=== PATIENT | female | born 1955 | race Caucasian/White ===

== ENCOUNTER 2018-02-11 15:28 | Observation (INO) ==
[2018-02-11 16:04] LABS: Basophils # 0.1 K/mcL (0.0-0.2); Basophils % 0.6 %; Eosinophils # 0.1 K/mcL (0.0-0.6); Eosinophils % 1.4 %; Hematocrit 45.1 % (35.3-44.9); Hemoglobin 14.9 g/dL (11.5-15.4); Immature Granulocytes % 0.3 % (0-4); Lymphocytes # 3.3 K/mcL (0.6-4.6); Lymphocytes % 37.3 %; Mean Corpuscular Hemoglobin 29.6 pg (28.0-33.3); Mean Corpuscular Volume 89.7 fL (83.0-100.0); Mean Platelet Volume 9.4 fL (9.4-12.4); Monocytes # 0.6 K/mcL (0.0-1.3); Monocytes % 6.8 %; Neutrophils # 4.7 K/mcL (1.6-8.9); Platelet Count 236 K/mcL (140-400); Red Blood Count 5.03 M/mcL (3.82-4.97); Red Cell Distribution Width 12.9 % (11.5-14.5); Segmented Neutrophils % 53.6 %
--- NOTE | 2018-02-11 16:04 | Emergency Department Note ---
Disposition Clinical Impression: Palpitations Disposition: Still a Patient Arrhythmia/Palpitations HPI - General Chief Complaint: ED Arrhythmia/Palpitations Stated Complaint: chest pain Time Seen by Provider: 02/11/18 15:39 Source: patient, family Mode of arrival: private vehicle Limitations: no limitations Vital Signs Reviewed: Yes - History of Present Illness HPI Narrative: Ms Galindo is a 62 y/o female that presents with a daily occurrence of palpations , SOB, and fatigue that resolves after an hour of resting. However, todays episode started when she was at the store and has been worse that ever and hasn' t resolved with the exception of the palpitations. She admits to decreasing her from TID to BID about a month ago which she correlates to her increase of symptoms. - Related Data Home Medications Medication Instructions Recorded Confirmed Atenolol [Tenormin] 25 mg PO DAILY 02/11/15 12/11/17 Diazepam [Valium] 2 mg PO DAILY PRN 02/11/15 12/11/17 Omeprazole [PriLOSEC] 20 mg PO HS 02/11/15 12/11/17 Phenobarb/Hyoscy/Atropine/Scop 16.2 mg PO TID 12/22/15 12/11/17 [ Tablet] Previous Rx's Medication Instructions Recorded Cholecalciferol (Vitamin D3) 50,000 unit PO QWEEK #12 capsule 12/16/17 [Vitamin D3] Allergies Allergy/AdvReac Type Severity Reaction Status Date / Time Iodinated Contrast- Oral and Allergy NO Verified 02/11/18 15:30 IV Dye REACTION SEE COMMENT Constitutional: Reports: weakness. Denies: fever, chills Eyes: Denies: vision change Cardiovascular: Reports: palpitations. Denies: chest pain, syncope Respiratory: Reports: dyspnea. Denies: cough, wheezes Gastrointestinal: Denies: abdominal pain, nausea, vomiting, diarrhea Neurological: Reports: weakness. Denies: headache, numbness, confusion Endocrine: Reports: fatigue Past Medical History - Past Medical History Medical history: Reports: other Surgical history: Reports: breast surgery Psychiatric history: Reports: anxiety - Social History Smoking Status: Never smoker Smokeless Tobacco Status: No Alcohol use: Reports: none Drug use: Reports: none Physical Exam - General Limitations: no limitations General appearance: alert, in no apparent distress Course Vital Signs Temperature 97.4 F L 02/11/18 15:29 Pulse Rate 67 02/11/18 15:29 Respiratory Rate 18 02/11/18 15:29 Blood Pressure 170/92 02/11/18 15:29 O2 Sat by Pulse Oximetry 99 02/11/18 15:29 Temperature 97.4 F L 02/11/18 15:45 Pulse Rate 67 02/11/18 15:45 Respiratory Rate 18 02/11/18 15:45 Blood Pressure 170/92 02/11/18 15:45 O2 Sat by Pulse Oximetry 99 02/11/18 15:45 Oxygen Delivery Oxygen Delivery Room Air
--- NOTE | 2018-02-11 16:26 | Emergency Department Note ---
Disposition Clinical Impression: Palpitations, Near syncope Disposition: Admitted As Inpatient Condition: Good Referrals: Phil Casas MD [Primary Care Provider] - Forms: ED Satisfaction Letter Arrhythmia/Palpitations HPI - General Chief Complaint: ED Arrhythmia/Palpitations Stated Complaint: chest pain Time Seen by Provider: 02/11/18 15:39 Source: patient, family Mode of arrival: private vehicle Limitations: no limitations Nursing Notes Reviewed: Yes Vital Signs Reviewed: Yes - History of Present Illness HPI Narrative: I have re-performed and reviewed the history documented by the medical student, and I confirm its accuracy except as noted below 62-year-old female with hypertension. Has palpitations daily with increasing intensity as well as a near syncopal episode today. No CAD history. No history of DVT or PE. No other complaints. Pt Subjective Complaint: palpitations Onset (ago): day(s) Duration: intermittent Severity: moderate Context: occurred during rest, occurred during exertion Associated symptoms: Reports: shortness of breath, near-syncope - Related Data Home Medications Medication Instructions Recorded Confirmed Atenolol [Tenormin] 25 mg PO DAILY 02/11/15 12/11/17 Diazepam [Valium] 2 mg PO DAILY PRN 02/11/15 12/11/17 Omeprazole [PriLOSEC] 20 mg PO HS 02/11/15 12/11/17 Phenobarb/Hyoscy/Atropine/Scop 16.2 mg PO TID 12/22/15 12/11/17 [ Tablet] Previous Rx's Medication Instructions Recorded Cholecalciferol (Vitamin D3) 50,000 unit PO QWEEK #12 capsule 12/16/17 [Vitamin D3] Allergies Allergy/AdvReac Type Severity Reaction Status Date / Time Iodinated Contrast- Oral and Allergy NO Verified 02/11/18 15:30 IV Dye REACTION SEE COMMENT All systems ED: reviewed and negative except as stated. Constitutional: Reports: weakness. Denies: fever, chills Eyes: Denies: vision change Cardiovascular: Reports: palpitations. Denies: chest pain, syncope Respiratory: Reports: dyspnea. Denies: cough, wheezes Gastrointestinal: Denies: abdominal pain, nausea, vomiting, diarrhea Neurological: Reports: weakness Endocrine: Reports: fatigue Past Medical History - Past Medical History Attestation: Yes The following information was validated with the patient. Source: patient Medical history: Reports: other Surgical history: Reports: breast surgery Psychiatric history: Reports: anxiety - Social History Smoking Status: Never smoker Smokeless Tobacco Status: No Alcohol use: Reports: none Drug use: Reports: none Physical Exam - General Limitations: no limitations General appearance: alert, in no apparent distress - Head Head exam: atraumatic, normocephalic - Eye Eye exam: Present: normal appearance - ENT ENT exam: normal exam - Neck Neck exam: Present: normal inspection - Chest Chest inspection: Present: normal inspection, symmetric chest wall rise - Respiratory Respiratory exam: Present: normal lung sounds bilaterally - Cardiovascular Cardiovascular exam: Present: regular rate, normal rhythm, normal heart sounds - Abdominal Exam Abdominal exam: Present: soft, Non-Tender. Absent: tenderness, distention, rigidity - Extremities Exam Extremities exam: Present: normal inspection, full ROM - Expanded Upper Extremity Exam Shoulder exam: Present: normal inspection, full ROM Arm exam: Present: normal inspection, full ROM Elbow exam: Present: normal inspection, full ROM Forearm/Wrist exam: Present: normal inspection, full ROM Hand exam: Present: normal inspection, full ROM - Expanded Lower Extremity Exam Hip/Pelvis exam: Present: normal inspection, full ROM Upper leg exam: Present: normal inspection, full ROM Knee exam: Present: normal inspection, full ROM Lower leg exam: Present: normal inspection, full ROM Ankle exam: Present: normal inspection, full ROM Foot/toe exam: Present: normal inspection, full ROM - Skin Skin exam: Present: warm, dry Course Course Narrative: Patient seen and examined. Vital signs reviewed. Plan for EKG, chest x-ray, labs including troponin. Admission for her near syncope and palpitations. Vital Signs Temperature 97.4 F L 02/11/18 15:29 Pulse Rate 67 02/11/18 15:29 Respiratory Rate 18 02/11/18 15:29 Blood Pressure 170/92 02/11/18 15:29 O2 Sat by Pulse Oximetry 99 02/11/18 15:29 Temperature 97.4 F L 02/11/18 15:45 Pulse Rate 72 02/11/18 17:10 Respiratory Rate 20 02/11/18 17:10 Blood Pressure 175/94 02/11/18 17:10 O2 Sat by Pulse Oximetry 100 02/11/18 17:10 Oxygen Delivery Oxygen Delivery Room Air Arrhythmia/Palpitations - [facility] Narrative Medical decision making narrative: 62-year-old female presenting with worsening palpitations with a near-syncopal episode today. EKG is without ischemic findings. X-ray and labs are grossly unremarkable. The patient is admitted to the hospitalist service for further evaluation. - Lab Data Lab results reviewed: Yes I reviewed the patient's lab results. Result diagrams: 02/11/18 15:55 02/11/18 15:55 Lab Results 02/11/18 02/11/18 02/11/18 Range/Units 15:55 15:55 15:55 WBC 8.7 (4.3-11.1) K/mcL RBC 5.03 H (3.82-4.97) M/mcL Hgb 14.9 (11.5-15.4) g/dL Hct 45.1 H (35.3-44.9) % MCV 89.7 (83.0-100.0) fL MCH 29.6 (28.0-33.3) pg MCHC 33.0 (31.6-35.5) g/dL RDW 12.9 (11.5-14.5) % Plt Count 236 (140-400) K/mcL MPV 9.4 (9.4-12.4) fL Immature Gran % 0.3 (0-4) % Seg Neutrophils % 53.6 % Lymphocytes % 37.3 % Monocytes % 6.8 % Eosinophils % 1.4 % Basophils % 0.6 % Neutrophils # 4.7 (1.6-8.9) K/mcL Lymphocytes # 3.3 (0.6-4.6) K/mcL Monocytes # 0.6 (0.0-1.3) K/mcL Eosinophils # 0.1 (0.0-0.6) K/mcL Basophils # 0.1 (0.0-0.2) K/mcL Sodium 138 (136-145) mEq/L Potassium 3.7 (3.5-5.1) mEq/L Chloride 103 (98-107) mEq/L Carbon Dioxide 25 (23-29) mEq/L BUN 15 (8-23) mg/dL Creatinine 0.88 (0.60-1.20) mg/dL Est GFR ( Amer) > 60 (> 60) Est GFR (Non-Af Amer) > 60 (> 60) BUN/Creatinine Ratio 17 (6-26) Glucose 124 H (70-105) mg/dL Calculated Osmolality 288 (280-300) Calcium 9.4 (8.6-10.3) mg/dL Troponin I < 0.03 (< 0.04) ng/mL B-Natriuretic Peptide 61 (Less than 100) pg/mL - Radiology Data Radiology results reviewed: Yes I reviewed the patient's radiology results. Chest X-Ray 02/11/18 15:41 IMPRESSION: No acute cardiopulmonary disease. D/ / Francisco Xie MD / Francisco Xie MD Interpreting Provider: Francisco Xie MD - EKG Data EKG attestation: Yes I reviewed and interpreted this EKG. EKG results narrative: EKG demonstrates sinus rhythm rate 72 beats or minute. Right axis deviation. Normal intervals. Normal R-wave progression. No gross ST elevations or depressions. ischemic flanks. S.Lissette - Marco Antonio.Lissette Situation: Demographics, MOA Background: Presenting Complaint, Relevant PMH, Meds, & Allergies Assessment: Course and respsone to treatment, Exam Concerns, Patient/Family Expectation, Pertinant Lab Results Recommendation: Barrier(s) to disposition, Recommendation based on pending studies, treatments, or consults S.B.AChelsi Report Given to: Dr. Terri Blankenship Repor Time: 17:36
[2018-02-11] MEDS ORDERED: 0.9 % Sodium Chloride 1,000 ML IVC ONE (16:28)
[2018-02-11 16:37] LABS: BUN/Creatinine Ratio 17 (6-26); Blood Urea Nitrogen 15 mg/dL (8-23); Calcium 9.4 mg/dL (8.6-10.3); Carbon Dioxide 25 mEq/L (23-29); Chloride 103 mEq/L (98-107); Glucose 124 mg/dL (70-105); Osmolality,Calculated 288 (280-300); Potassium 3.7 mEq/L (3.5-5.1); Sodium 138 mEq/L (136-145); eGFR For Non-African Americans > 60 (> 60)
[2018-02-11 16:38] LABS: Troponin I < 0.03 ng/mL (< 0.04)
--- NOTE | 2018-02-11 17:30 | Emergency Department Note ---
Disposition Clinical Impression: Palpitations, Near syncope Disposition: Admitted As Inpatient Condition: Good Referrals: Phil Casas MD [Primary Care Provider] - Forms: ED Satisfaction Letter General Adult HPI - General Chief complaint: ED Arrhythmia/Palpitations Stated complaint: chest pain Time Seen by Provider: 02/11/18 15:39 Source: patient, family Mode of arrival: private vehicle Limitations: no limitations - History of Present Illness Pain Scale: 0 - Related Data Home Medications Medication Instructions Recorded Confirmed Atenolol [Tenormin] 25 mg PO DAILY 02/11/15 12/11/17 Diazepam [Valium] 2 mg PO DAILY PRN 02/11/15 12/11/17 Omeprazole [PriLOSEC] 20 mg PO HS 02/11/15 12/11/17 Phenobarb/Hyoscy/Atropine/Scop 16.2 mg PO TID 12/22/15 12/11/17 [ Tablet] Previous Rx's Medication Instructions Recorded Cholecalciferol (Vitamin D3) 50,000 unit PO QWEEK #12 capsule 12/16/17 [Vitamin D3] Allergies Allergy/AdvReac Type Severity Reaction Status Date / Time Iodinated Contrast- Oral and Allergy NO Verified 02/11/18 15:30 IV Dye REACTION SEE COMMENT Constitutional: Reports: weakness. Denies: fever, chills Eyes: Denies: vision change Cardiovascular: Reports: palpitations. Denies: chest pain, syncope Respiratory: Reports: dyspnea. Denies: cough, wheezes Gastrointestinal: Denies: abdominal pain, nausea, vomiting, diarrhea Neurological: Reports: weakness Endocrine: Reports: fatigue Past Medical History - Past Medical History Medical history: Reports: other Surgical history: Reports: breast surgery Psychiatric history: Reports: anxiety - Social History Smoking Status: Never smoker Smokeless Tobacco Status: No Alcohol use: Reports: none Drug use: Reports: none Physical Exam - General Limitations: no limitations General appearance: alert, in no apparent distress Course Vital Signs Temperature 97.4 F L 02/11/18 15:29 Pulse Rate 67 02/11/18 15:29 Respiratory Rate 18 02/11/18 15:29 Blood Pressure 170/92 02/11/18 15:29 O2 Sat by Pulse Oximetry 99 02/11/18 15:29 Temperature 97.4 F L 02/11/18 15:45 Pulse Rate 72 02/11/18 17:10 Respiratory Rate 20 02/11/18 17:10 Blood Pressure 175/94 02/11/18 17:10 O2 Sat by Pulse Oximetry 100 02/11/18 17:10 Oxygen Delivery Oxygen Delivery Room Air Medical Decision Making - Lab Data Result diagrams: 02/11/18 15:55 02/11/18 15:55 Lab Results 02/11/18 02/11/18 02/11/18 Range/Units 15:55 15:55 15:55 WBC 8.7 (4.3-11.1) K/mcL RBC 5.03 H (3.82-4.97) M/mcL Hgb 14.9 (11.5-15.4) g/dL Hct 45.1 H (35.3-44.9) % MCV 89.7 (83.0-100.0) fL MCH 29.6 (28.0-33.3) pg MCHC 33.0 (31.6-35.5) g/dL RDW 12.9 (11.5-14.5) % Plt Count 236 (140-400) K/mcL MPV 9.4 (9.4-12.4) fL Immature Gran % 0.3 (0-4) % Seg Neutrophils % 53.6 % Lymphocytes % 37.3 % Monocytes % 6.8 % Eosinophils % 1.4 % Basophils % 0.6 % Neutrophils # 4.7 (1.6-8.9) K/mcL Lymphocytes # 3.3 (0.6-4.6) K/mcL Monocytes # 0.6 (0.0-1.3) K/mcL Eosinophils # 0.1 (0.0-0.6) K/mcL Basophils # 0.1 (0.0-0.2) K/mcL Sodium 138 (136-145) mEq/L Potassium 3.7 (3.5-5.1) mEq/L Chloride 103 (98-107) mEq/L Carbon Dioxide 25 (23-29) mEq/L BUN 15 (8-23) mg/dL Creatinine 0.88 (0.60-1.20) mg/dL Est GFR ( Amer) > 60 (> 60) Est GFR (Non-Af Amer) > 60 (> 60) BUN/Creatinine Ratio 17 (6-26) Glucose 124 H (70-105) mg/dL Calculated Osmolality 288 (280-300) Calcium 9.4 (8.6-10.3) mg/dL Troponin I < 0.03 (< 0.04) ng/mL B-Natriuretic Peptide 61 (Less than 100) pg/mL Attestation Statement - Attestation Attestation: I examined this patient and my medical decision-making was reviewed with the Resident Physician. I agree with the documented findings, disposition and treatment plan as described except to the extent set forth below. 62 year old female presents to the ED with complaints of chest pain and has moderate heart score with multilke risk factors with a previous workup for ACS many years ago. We will treat with ASA and and hold off on nitro as she is currently chest pain free. Tata will be admitted to medicine
--- NOTE | 2018-02-11 18:29 | Internal Med History&Physical ---
Date of Encounter: 02/11/18 Time of Encounter: 18:24 Internal Medicine - H&P: HPI History of present illness: Ms. Galindo is a 62 year old female with history of PVCs on atenolol presented for worsening palpitations, with mild shortness of breath with a "smuthering" feeling. Patient states that it feels like her heart was stopping. She states this has been going on since 3 pm today. She denies chest pain, headache, fevers/chills, diarrhea, nausea/vomiting, focal weakness, slurring speech. In the ED patient had unremarkable BMP and CBC outside of borderline elevated glucose of 124. She had an EKG done that was unremarkable and a chest x-ray showed no acute process. Initial troponin was negative. Patient did have a fall 2 months ago and hit head but there was no acute issues after fall. She admits to urinary frequency otherwise, no other complaints. Past Med Surg Social Fam HX - Past Medical History Medical history: other Additional medical history: palpitations Psychiatric history: anxiety - Past Surgical History Surgical History: breast surgery Additional surgical history: left mastectomy and kidney stone removal - Social History Smoking Status: Never smoker Smokeless Tobacco Status: No Alcohol use: none Drug use: none Internal Medicine - H&P: Meds Atenolol [Tenormin] 25 mg PO DAILY 02/11/15 [History] Diazepam [Valium] 2 mg PO DAILY PRN 02/11/15 [History] Omeprazole [PriLOSEC] 20 mg PO HS 02/11/15 [History] Phenobarb/Hyoscy/Atropine/Scop [ Tablet] 16.2 mg PO TID 12/22/15 [ History] Cholecalciferol (Vitamin D3) [Vitamin D3] 50,000 unit PO QWEEK #12 capsule 12/16 [Rx] 3 Allergy/AdvReac Type Severity Reaction Status Date / Time Iodinated Contrast- Oral and Allergy NO Verified 02/11/18 15:30 IV Dye REACTION SEE COMMENT All Systems PM: A 10-system review of systems was performed and is negative for pertinent findings except as documented above in the HPI. - Constitutional Constitutional: no chills, no excessive sweating, no fatigue, no fever(s), no night sweats, no weakness - EENT Eyes: no change in vision, no discharge, no pain, no photophobia - Cardiovascular Cardiovascular ROS IM: dyspnea, lightheadedness, palpitations, no chest pain, no diaphoresis, no syncope - Respiratory Respiratory: dyspnea, no cough, no wheezing, no snoring, no stridor - Gastrointestinal Gastrointestinal: no abdominal pain, no diarrhea, no hematemesis, no hematochezia, no melena, no nausea, no vomiting - Genitourinary Genitourinary: urinary frequency, urinary urgency, no dysuria - Musculoskeletal Musculoskeletal ROS IM: no numbness, no tingling - Integumentary Integumentary IM: no rash, no unusual bruising - Neurological Neurological ROS: no confusion, no convulsions, no focal weakness, no numbness, no tingling, no tremor(s) - Constitutional Vitals: Temp Pulse Resp BP Pulse Ox 97.4 F L 72 20 175/94 100 02/11/18 15:45 02/11/18 17:10 02/11/18 17:10 02/11/18 17:10 02/11/18 17:10 General appearance: Present: A&O X 3 Exam: Mucus membranes dry - Head Head exam: Present: atraumatic, normocephalic - Eye Eye exam: Present: PERRL, conjuntiva pink, sclera anicteric Pupils: Present: PERRL - Neck Neck exam general surgery: Present: supple, trachea midline. Absent: lymphadenopathy - Respiratory Respiratory exam: Present: CTAB. Absent: accessory muscle use, rales, rhonchi, wheezes - Cardiovascular Cardiovascular exam: Present: RRR, +S1, +S2. Absent: diastolic murmur, gallop, rubs, systolic murmur - GI/Abdominal GI/Abdominal exam: Present: normal bowel sounds, soft, no peritoneal signs. Absent: distended, tenderness - Extremities Exam Extremities exam: Present: warm, radial pulses palpable and symmetrical. Absent : calf tenderness, cyanotic, pedal edema - Neurological Exam Neurological exam: Present: CN II-XII intact, oriented X3, no focal deficits. Absent: pronater drift, facial droop, speech deficit - Skin Skin exam: Present: dry, intact Internal Med - H&P Results - Labs CBC & Chem 7: 02/11/18 15:55 02/11/18 15:55 - Assessment and plan (1) Pre-syncope Current Visit: Yes Status: Acute Assessment and plan: Based on patient's history of PVCs on atenolol, this could be cardiogenic. Currently takes atenolol at home. She is also dehydrated which can contribute to palpitations and symptoms. Will rule out any intracranial process to pre syncope with a CT head. If any further cardiac concern, should consider a Cardiology consult, but at this point EKG is unremarkable, should be observed on telemetry. With palpitations and "smothering" feeling with breathing in the setting of pre- syncope, will rule out P.E. with D-dimer level, as she is fairly low risk. - Orthostatic vital signs - D-dimer - Echocardiogram - Carotid ultrasound - TSH - IV fluids. (2) PVC (premature ventricular contraction) Current Visit: Yes Status: Acute Assessment and plan: Resume home medication atenolol. (3) Urinary frequency Current Visit: Yes Status: Acute Assessment and plan: Obtain UA (4) Dehydration Current Visit: Yes Status: Acute Assessment and plan: Continue IV fluids. Has received 1 L IV fluids in ED. She appears dry on exam. (5) Palpitations Current Visit: Yes Status: Acute Assessment and plan: Plan as above. Likely symptomatic PVCs causing symptoms. She is also dehydrated which can worsen symptoms. - Time Spent With Patient Total time spent is greater than 50% in coordination of care (as documented) at patient's floor/unit and/or counseling patient:
[2018-02-11 19:02] LABS: Thyroid Stimulating Hormone 1.962 mcIU/mL (0.340-5.600)
[2018-02-11] MEDS: Ringers Solution, Lactated 1,000 ML IVC SCH ×2 (21:13→21:22)
[2018-02-11] MEDS ORDERED: diazePAM 2 MG TABLET PO PRN (21:25)
[2018-02-11] MEDS ORDERED: *HR* Enoxaparin 80 MG/0.8 ML SYRINGE SQ STA (22:16)
[2018-02-12 00:18] LABS: Bilirubin,Urine Negative (Negative); Blood,Urine Trace (Negative); Clarity,Urine Clear (Clear); Color,Urine Yellow (Yellow); Glucose,Urine (UA) Normal (Normal); Ketones,Urine Negative (Negative); Leukocyte Esterase,Urine Small (Negative); Nitrite,Urine Negative (Negative); Protein,Urine Negative (Neg-Trace); Specific Gravity,Urine 1.017 (1.010-1.025); Urobilinogen,Urine Normal (Normal)
[2018-02-12 00:20] LABS: Bacteria,Urine None Seen per hpf (None-Few); Hyaline Casts,Urine None Seen per lpf (None-Few); Squamous Epithelial Cell,Urine Moderate per lpf (None-Few)
[2018-02-12 05:15] LABS: Chol/HDL Ratio 5.1 (0-4.9)
[2018-02-12] MEDS: Ringers Solution, Lactated 1,000 ML IVC SCH (05:57)
[2018-02-12] MEDS ORDERED: cefTRIAXone 2,000 MG in Water for inj. (sterile) 20 ML 20 ML IVP SCH (08:00)
[2018-02-12] MEDS ORDERED: cefTRIAXone 2,000 MG in 0.9 % Sodium Chloride Mini Bag 100 ML IVPB SCH (08:00)
[2018-02-12] MEDS: Donnatal Liq 10 ML UDC PO SCH ×3 (08:24→20:19)
[2018-02-12] MEDS ORDERED: *HR* Enoxaparin 80 MG/0.8 ML SYRINGE SQ SCH (12:00)
[2018-02-12 12:19] LABS: ABG Base Excess 4 mEq/L (-2 to 3); ABG HCO3 27 mEq/L (21-27); ABG Oxygen Saturation 96 % (95-98); ABG PCO2 38 mmHg (35-45); ABG PH 7.46 pH Units (7.32-7.45); ABG PO2 80 mmHg (85-104); ABG TCO2 29 mEq/L (20-26)
[2018-02-12] MEDS ORDERED: Isovue-370 500 ML INFUS..BTL IV ONE (12:20)
[2018-02-12] MEDS ORDERED: *HR* Heparin 5,000 UNIT/ML VIAL SQ SCH (14:00)
--- NOTE | 2018-02-12 14:51 | Cardiology Consult Note ---
Date of Encounter: 02/12/18 Time of Encounter: 14:49 Assessment and Plan (1) Palpitations Current Visit: Yes Status: Acute 62-year-old female with a reported history of PVCs presents with palpitations. Patient describes palpitations throughout the day, but telemetry demonstrates sinus rhythm without ectopy. TTE demonstrates normal LV function. No significant findings on CTA chest. Recommend continue atenolol therapy. No indication for further cardiac testing during this hospital stay. Outpatient follow-up recommended. Consider event monitor as outpatient. Cardiology will sign off. All questions were answered. Discussion w patient/family: The assessment and plan as outlined above was discussed with the patient and/or family members who expressed understanding and agreement. All questions were answered. Thank you for involving us in the care of your patient. Please call with any questions. History of Present Illness Consult date: 02/12/18 Requesting physician: Miriam Murray Consult reason: Palpitations Chief complaint: Palpitations History of present illness: Ms. Galindo is a 62 year old female with a history of palpitations due to PVCs. Yesterday, describes worsening of her palpitations. The symptoms brought her to the hospital. Electrolytes, BMP normal. Troponin negative. Telemetry reviewed, no PVCs noted. No significant findings on ECG. CTA ordered earlier today, which was negative for PE and acute pulmonary abnormalities. TTE done which was normal LV function, no significant valve disease. Past Med Surg Social Fam HX - Past Medical History Medical history: other Additional medical history: palpitations Psychiatric history: anxiety - Past Surgical History Surgical History: breast surgery Additional surgical history: left mastectomy and kidney stone removal - Social History Smoking Status: Never smoker Smokeless Tobacco Status: No Alcohol use: none Drug use: none - Family History Mother Living Status: Age at : 69 Hx Family Genitourinary Disorders: Yes (kidney problems) Sister Hx Family Cancer: Yes (breast) Hx Family Neurologic Disorders: Yes (stroke) Father Hx Family Respiratory Disorders: Yes (lung disease, pneumonia) Hx Family GI Disorders: Yes (ulcers) Medications and Allergies Atenolol [Tenormin] 25 mg PO DAILY 02/12/18 [History] Cholecalciferol (Vitamin D3) [Vitamin D3] 50,000 mg PO Q14D 02/12/18 [History] Omeprazole [PriLOSEC] 20 mg PO DAILY 02/12/18 [History] Phenobarb/Hyoscy/Atropine/Scop [ Tablet] 16.2 mg PO TID 02/12/18 [ History] diazePAM [Valium] 2.5 mg PO DAILY PRN 02/12/18 [History] 3 Allergy/AdvReac Type Severity Reaction Status Date / Time ceftriaxone [From Rocephin] AdvReac Hives Verified 02/12/18 12:55 All Systems Review: The remainder of the systems were reviewed and are negative - Cardiovascular Cardiovascular: as per HPI, lightheadedness, palpitations Physical Examination Vital Signs, Last 4 Hours Temp Pulse Resp BP Pulse Ox 02/12/18 11:11 98.1 F 67 14 141/85 94 General: Conversant, No Apparent Distress HEENT: Atraumatic, Normocephaly, Mucus Membranes Moist Neck: No JVD, Normal carotid pulses Cardiac: Reg Rate and Rhythm, Normal S1 and S2, No Murmur Lungs: Normal Breath Sounds, No Wheeze, Rales, Rhonchi Neuro: Alert and responsive, No focal deficits noted Abdomen: Soft, Non-Tender Skin: No rashes noted on visualized skin Musculoskeletal: No Chest Wall Tenderness Extremities: No Clubbing, No Cyanosis, No Edema Results 02/11/18 15:55 02/11/18 15:55 Lab Results 02/11/18 18:53 D-Dimer 572 H - Imaging and Cardiology Echo: report reviewed - EKG Interpretation EKG results cardiology: personally reviewed Consult Discharge Plan - Plan Referrals: Phil Casas MD [Primary Care Provider] -
--- NOTE | 2018-02-12 15:27 | Discharge Summary ---
- NOTES TO OUTPATIENT PROVIDER Notes to Outpatient Provider: jen castro with cardiology as OP for event monitoring device. follow up with urology. follow up with neurology in regards to CT head findings Orders not resulted at time of discharge: Pending orders 02/12/18 07:36 Culture,Urine [RM] Stat 02/12/18 11:50 VQ Scan [NM pul vent and perfuse] [NM] Routine Date of Encounter: 02/12/18 Time of Encounter: 15:23 - Discharge Diagnosis (1) Palpitations Priority: Primary Status: Acute (2) PVC (premature ventricular contraction) Priority: Secondary Status: Acute (3) Urinary frequency Priority: Secondary Status: Acute (4) Dehydration Priority: Secondary Status: Acute (5) Pre-syncope Priority: Secondary Status: Acute Hospital course: Ms. Galindo is a 62 year old female with history of palpitations secondary to PVCs on beta blockers presented to the emergency department with worsening palpitation and a presyncopal episode. She reported that her palpitations were also associated with shortness of breath and she felt as though her heart was going to stop. In the ED basic labs were unremarkable. chest x-ray showed no acute process. CT head was performed, results below. She was admitted for close observation and was placed on telemetry monitoring. Telemetry did not show any acute events. TSH was within normal limit and troponin was negative. Echocardiogram was done which showed normal LV function and no significant valvular disease, full report below. She continued to complain of palpitations and shortness of breath, She was found to be low Probability for PE while in the ED so d-dimer was sent which was elevated. She was treated with therapeutic Lovenox. ABG done showed AA gradient of 22 expected for age was 20. She had listed IV contrast as one of her allergies but after speaking to the patient it was revealed that her mother had an allergic reaction to contrast so due to anxiety of having an allergic reaction patient listed as one of her allergies. This conversation was witnessed by the nurse and allergy was removed from her medical chart. CT angiogram of the chest performed as she had elevated d-dimer which was negative for acute pulmonary embolism, full report below. She tolerated CT angiogram of the chest without any adverse reactions. In addition to above she complaint of urinary frequency urinalysis obtained was positive, she was started on IV ceftriaxone but subsequently developed rash. Ceftriaxone was stopped and listed as one of her allergies. She was given Bactrim without any adverse reactions. She does report history of urinary tract infections so she was told to make an appointment with urology as soon as possible, contact numbers provided to the patient. Cardiology was consulted due to persistent palpitations although telemetry did not show any acute events and it was recommended for her to continue her beta mireya and follow-up as outpatient for event monitoring device. She was counseled on smoking and nutrition She was started on aspirin and Lipitor, due to findings on CT head and lipid panel while in the hospital. She was told to follow-up with her primary care physician/ neurology for CT head findings and have lipid panel repeated. CTA IMPRESSION: No evidence of pulmonary embolism or acute pulmonary abnormality. Ct head: IMPRESSION: No acute intracranial abnormality. White matter hypoattenuation described is typical of microvascular ischemic disease or as sequela of dysmyelinating/demyelinating processes. Remote lacunar stroke posterior inferior left basal ganglia. TTE Impressions: LVEF 60%. Normal LV chamber size, wall thickness and function. Mild left ventricular diastolic dysfunction. Normal right ventricular structure and function. No evidence of pulmonary hypertension. No significant valvular dysfunction. Discharge discussed with: patient Time spent discussing smoking cessation with patient: 3 to 10 minutes - Time Spent with Patient Total time spent providing and/or coordinating discharge services: Less than 30 minutes - Discharge Medications Prescriptions: Sulfamethoxazole/Trimeth DS [Bactrim Ds] 1 each PO BID 7 Days #14 tablet Home Medications: Aspirin 81 mg PO DAILY #30 tab.chew 02/12/18 [Rx] Atenolol [Tenormin] 25 mg PO DAILY 02/12/18 [History] Atorvastatin [Lipitor] 40 mg PO HS #30 tablet 02/12/18 [Rx] Cholecalciferol (Vitamin D3) [Vitamin D3] 50,000 mg PO Q14D 02/12/18 [History] Omeprazole [PriLOSEC] 20 mg PO DAILY 02/12/18 [History] Phenobarb/Hyoscy/Atropine/Scop [ Tablet] 16.2 mg PO TID 02/12/18 [ History] Sulfamethoxazole/Trimeth DS [Bactrim Ds] 1 each PO BID 7 Days #14 tablet [Rx] diazePAM [Valium] 2.5 mg PO DAILY PRN 02/12/18 [History] Allergies/Adverse Reactions: 3 Allergy/AdvReac Type Severity Reaction Status Date / Time ceftriaxone [From Rocephin] AdvReac Hives Verified 02/12/18 12:55 Date of admission: 02/11/18 17:42 Primary care physician: Phil Casas MD Consults: 02/12/18 07:37 Consult to Cardiology [CONS] Routine Comment: Consulting Provider: [facility] [place] Reason for Consult: frequent symptomatic pVC on BB presyncope Call Completed: No - Constitutional Vitals: Temp Pulse Resp BP Pulse Ox 98.1 F 67 14 141/85 94 02/12/18 11:11 02/12/18 11:11 02/12/18 11:11 02/12/18 11:11 02/12/18 11:11 General appearance: Present: A&O X 3 Exam: General: No Apparent Distress, speaks in full sentences HEENT: Atraumatic, Normocephaly, Mucus Membranes Moist Neck: No JVD, Normal carotid pulses Cardiac: Reg Rate and Rhythm, Normal S1 and S2, No Murmur Lungs: Normal Breath Sounds, No Wheeze, Rales, Rhonchi Neuro: Alert and responsive, No focal deficits noted Abdomen: Soft, Non-Tender, obese Skin: No rashes noted on visualized skin Musculoskeletal: No Chest Wall Tenderness, 5/5 strength in all extremities Extremities: No Clubbing, No Cyanosis, No Edema, no calf tenderness - Patient Status Disposition: Home, Self-Care Condition: Good Overall status at discharge: patient is progressing back to baseline - Discharge Instructions Follow Up With: Phil Casas MD [Primary Care Provider] - Michael Carbajal MD [Partnered Physician] - Rodney Thakur DO [Partnered Physician] - Beth Willoughby MD [Partnered Physician] - - Diet and Activity Activity: increase activity as tolerated Diet: advance to your usual diet
[2018-02-12] MEDS: Aspirin 81 MG TAB.CHEW PO SCH (17:05)
[2018-02-12] MEDS: Sulfamethoxazole/Trimeth DS 1 EACH TABLET PO SCH (20:18)
[2018-02-13] MEDS: *HR* Heparin 5,000 UNIT/ML VIAL SQ SCH ×2 (00:16→06:05)
[2018-02-13 07:36] VITALS: BP 145/81
[2018-02-13] MEDS: Aspirin 81 MG TAB.CHEW PO SCH (08:10)
[2018-02-13] MEDS: Sulfamethoxazole/Trimeth DS 1 EACH TABLET PO SCH (08:10)
[2018-02-13] MEDS: Donnatal Liq 10 ML UDC PO SCH (08:10)
--- NOTE | 2018-02-13 09:10 | Internal Med Progress Note ---
Hospitalist Progress Note - Encounter Date of Encounter: 02/13/18 Time of Encounter: 09:07 - Subjective Interval History: Patient was seen and examined at bedside, denies any chest pain but did have palpitations overnight. Denies shortness of breath, cough, nausea, vomiting, diarrhea, unsteady gait, fall, LOC, syncope Reports that her urinary frequency is has improved. No significant events overnight Tolerated diet. - Exam Vitals: Temp Pulse Resp BP Pulse Ox 98.1 F 59 16 145/81 94 02/13/18 07:35 02/13/18 07:35 02/13/18 07:35 02/13/18 07:35 02/13/18 07:35 Exam: General: No Apparent Distress, speaks in full sentences HEENT: Atraumatic, Normocephaly, Mucus Membranes Moist Neck: No JVD, Normal carotid pulses Cardiac: Reg Rate and Rhythm, Normal S1 and S2, No Murmur Lungs: Normal Breath Sounds, No Wheeze, Rales, Rhonchi Neuro: Alert and responsive, No focal deficits noted, gait stable, rhomberg negative, rapid hand movements intact, heel to chin intact, negative pronator sign Abdomen: Soft, Non-Tender, obese Skin: No rashes noted on visualized skin Musculoskeletal: No Chest Wall Tenderness, 5/5 strength in all extremities Extremities: No Clubbing, No Cyanosis, No Edema, no calf tenderness - Assessment and Plan (1) Palpitations Current Visit: Yes Status: Acute Assessment and Plan: There is no events on telemetry monitoring on February 12 however on February 13 there are a few episodes of single beat PVC She is to continue with her beta blockers as per cardiology recommendations She is to follow-up with cardiology as outpatient for event monitoring device TTE demonstrates normal LV function No significant findings on CTA chest, ruled out PE (2) PVC (premature ventricular contraction) Current Visit: Yes Status: Acute Assessment and Plan: Resume home medication atenolol. rest of management as per above (3) Dehydration Current Visit: Yes Status: Acute Assessment and Plan: Was treated with IV fluids with resolution of her symptoms (4) Pre-syncope Current Visit: Yes Status: Acute Assessment and Plan: Most likely secondary to dehydration. No significant arrhythmias on telemetry Cardiology was consulted and recommended outpatient follow-up Continue with atenolol CT and MRI had performed results below Lipid panel was done She was started on aspirin and Lipitor Ruled out PE as she had elevated d-dimer, CT angiogram of the chest results below Carotid Doppler results below carotid doppler- no significant disease- prelim report CTA-MPRESSION: No evidence of pulmonary embolism or acute pulmonary abnormality. CT head No acute intracranial abnormality. White matter hypoattenuation described is typical of microvascular ischemic disease or as sequela of dysmyelinating/demyelinating processes. Remote lacunar stroke posterior inferior left basal ganglia. MRIIMPRESSION: No acute intracranial abnormality. Minimal parenchymal volume loss. Minimal chronic microvascular disease. (5) Acute cystitis with hematuria Current Visit: Yes Status: Acute Assessment and Plan: on bactrim DS follow ucx as OP - Time Spent with Patient Total time spent is greater than 50% in coordination of care (as documented) at patient's floor/unit and/or counseling patient: Plan of Care Discussed with: patient Internal Medicine: Result - Labs CBC & Chem 7: 02/11/18 15:55 02/11/18 15:55 - ABG Interpretation ABG results: ABG ABG pH 7.46 pH Units (7.32-7.45) H 02/12/18 12:01 ABG pCO2 38 mmHg (35-45) 02/12/18 12:01 ABG pO2 80 mmHg (85-104) L 02/12/18 12:01 ABG O2 Saturation 96 % (95-98) 02/12/18 12:01 PT/INR, D-dimer D-Dimer 572 ng/mLFEU (0-500) H 02/11/18 18:53 - Impressions Impressions Echocardiogram 02/11/18 18:22 Impressions: LVEF 60%. Normal LV chamber size, wall thickness and function. Mild left ventricular diastolic dysfunction. Normal right ventricular structure and function. No evidence of pulmonary hypertension. No significant valvular dysfunction. Left Ventricular Wall Motion: Rest Echo Findings All wall segments showed normal motion. Findings: Study Quality * Technically adequate exam. ECG Findings * Normal sinus rhythm. Left Ventricle * LVEF 60%. * Normal LV chamber size, wall thickness and function. * Mild left ventricular diastolic dysfunction. Right Ventricle * Normal right ventricular structure and function. Left Atrium * Normal left atrial size. Right Atrium * Normal right atrial size. Aortic Valve * Trileaflet aortic valve with normal function. * No aortic regurgitation. * No aortic stenosis. Mitral Valve * Normal mitral valve structure and function. * No mitral regurgitation. * No mitral stenosis. Tricuspid Valve * Normal tricuspid valve structure and function. * Trace tricuspid regurgitation. * No evidence of pulmonary hypertension. Pulmonic Valve * Normal pulmonic valve structure and function. * No pulmonic regurgitation. Aorta * Normally sized aortic root. Pericardium * The pericardium appears normal. IVC * Normal IVC dimensions and inspiratory collapse. Pulmonary Artery * Normal visualized portions of the main pulmonary artery. Chest CTA 02/12/18 12:20 IMPRESSION: No evidence of pulmonary embolism or acute pulmonary abnormality. D/ / Marquise Sánchez MD / Marquise Sánchez MD Interpreting Provider: Marquise Sánchez MD Brain MRI 02/12/18 16:52 IMPRESSION: No acute intracranial abnormality. Minimal parenchymal volume loss. Minimal chronic microvascular disease. D/ / Francisco Xie MD / Francisco Xie MD Interpreting Provider: Francisco Xie MD Consult Discharge Plan - Plan Referrals: Phil Casas MD [Primary Care Provider] - Michael Carbajal MD [Partnered Physician] - Beth Willoughby MD [Partnered Physician] - Rodney Thakur DO [Partnered Physician] - Prescriptions: Aspirin 81 mg PO DAILY #30 tab.chew Atorvastatin [Lipitor] 40 mg PO HS #30 tablet Sulfamethoxazole/Trimeth DS [Bactrim Ds] 1 each PO BID 7 Days #14 tablet
== END 2018-02-13 10:24 | disposition home or self-care (01) ==
LOC: 3BNU 15:28 → EMEROOARM 15:28 → SUATTDRO 17:42 → 3BNU 20:38
PROVIDERS: ADMIT Student in an Organized Health Care Education/Training Program; ATTEND Internal Medicine